=== PATIENT | female | born 1990 | race Caucasian/White ===

== ENCOUNTER 2016-09-16 15:41 | Emergency (ER) | payer OTHER ==
[~2016-09-16] VITALS: Ht 165.1 cm; Wt 115.0 kg
[~2016-09-16 15:41] MED LIST: ADVIL200 MG PO; AMOXICILLIN500 MG OR; AMOXIL500 MG OR; BACTRIM DS1 TAB OR; BACTRIM DS1 TAB PO; CONCEPT OB PO; DOXYCYCL HYC100 MG OR; FERR SULFATE325 MG PO; FISH OIL1000 MG PO; FLAGYL500 MG OR; FLEXERIL PO; IBUPROFEN600 MG PO; INTEGRA F OR; INTEGRA F PO; IRON CHEWS PO; KEFLEX500 MG OR; KEFLEX500 MG PO; LORTAB 5 OR; LORTAB 7.57.5 MG PO; LORTAB5 PO; MOTRIN IB200 MG OR; MOTRIN800 MG/TAB PO; NO HOME MEDS; NO MEDS; NORCO1 TA1 PO; PARAGARD IU; PERCOCET 5/325M1 TAB OR; PHENERGAN SUPP RE; PRENATA3 OR; PRENATAL1 TA1 PO; REGLAN10 MG PO; TYLENOL500 MG OR; ULTRAM50 M1 PO; ULTRAM50 MG PO
[2016-09-16] MEDS ORDERED: AMOX/K CLAV875 M1 PO (16:59)
[2016-09-16] MEDS ORDERED: LORTAB 10-325 M1 TAB PO (16:59)
[2016-09-16 17:00] VITALS: BP 126/83
== END 2016-09-16 17:00 | disposition home or self-care (01) | DRG 781 ==
LOC: ED 15:41
DX: O26.891 Other specified pregnancy related conditions, first trimester (principal); H92.11 Otorrhea, right ear; H66.91 Otitis media, unspecified, right ear; Z3A.08 8 weeks gestation of pregnancy; H92.01 Otalgia, right ear

== ENCOUNTER 2016-11-12 05:23 | Emergency (ER) | payer OTHER ==
[~2016-11-12] VITALS: Ht 165.1 cm; Wt 106.0 kg
[~2016-11-12 05:23] MED LIST changes: +AMOX/K CLAV875 M1 PO; +LORTAB 10-325 M1 TAB PO
[2016-11-12] MEDS ORDERED: PRENATA7 PO (05:33)
[2016-11-12 06:30] LABS: HEMATOCRIT 33.7 % (37.0-47.0); IMMATURE GRANULOCYTES 0.5 % (0.0-1.0); MEAN CELL VOLUME 83.8 fL CALC (80.0-100.0); MEAN CORPUSCULAR HGB 27.4 pG CALC (26.0-32.0); MEAN CORPUSCULAR HGB CONC 32.6 g/L CALC (32.0-36.0); NEUT# 6.22 thou/uL (2.00-7.15); RED BLOOD COUNT 4.02 mill/uL (4.20-5.60); RED CELL DISTRI WIDTH 14.6 % (11.5-15.5)
[2016-11-12 06:31] LABS: URINE BLOOD DIPSTICK LARGE (NEGATIVE); URINE CLARITY TURBID; URINE COLOR YELLOW; URINE GLUCOSE - DIPSTICK NEGATIVE (NEGATIVE); URINE KETONE NEGATIVE (NEGATIVE); URINE LEUK ESTERASE NEGATIVE (NEGATIVE); URINE NITRITE - DIPSTICK NEGATIVE (Negative); URINE PH 5.5 (4.5-8.0); URINE PROTEIN - DIPSTICK 30 mg/dL (NEG-TRACE); URINE SPECIFIC GRAVITY >=1.030; URINE UROBILINOGEN - DIPSTICK 0.2 E.U./dL (0.2)
[2016-11-12 06:32] LABS: URINE BILIRUBIN - DIPSTICK SMALL (NEGATIVE)
[2016-11-12 06:33] LABS: URINE BACTERIA FEW hpf; URINE MUCUS FEW hpf (NONE-FEW); URINE RBC 25-50 RBC/hpf (0-5); URINE SQUAMOUS EPITHELIAL CELL MODERATE EPI/hpf (0-FEW)
[2016-11-12 06:37] LABS: ALBUMIN 3.6 g/dL (3.2-5.0); ALKALINE PHOSPHATASE 79 u/l (38-126); ANION GAP 13 (6-22 (CALC)); BILIRUBIN, TOTAL 0.3 mg/dL (0.0-1.4); BUN 5 mg/dL (7-17); BUN/CREATININE RATIO 11 (12-20 (CALC)); CALCIUM 9.2 mg/dL (8.4-10.2); CARBON DIOXIDE 19 mmol/l (22-30); CHLORIDE 107 mmol/l (95-108); CREATININE 0.5 mg/dL (0.5-1.0); GFR > 60 ML/MIN (>=60 (CALC)); GFR FOR AFR.AMER. > 60 ML/MIN (>=60 (CALC)); GLUCOSE 106 mg/dL (65-105); POTASSIUM 4.1 mmol/l (3.5-5.1); SGOT/AST 12 u/l (14-36); SGPT/ALT 24 u/l (9-52); SODIUM 136 mmol/l (137-146); TOTAL PROTEIN 6.8 g/dL (6.3-8.2)
[2016-11-12 07:18] LABS: BETA-HCG, QUANT(RESULT NUMBER) 52839 mIU/mL
[2016-11-12] MEDS ORDERED: CORTISPORIN11 OT (09:49)
[2016-11-12 09:52] VITALS: BP 125/79
== END 2016-11-12 10:00 | disposition home or self-care (01) | DRG 782 ==
LOC: ED 05:23
PROVIDERS: Emergency Medicine
DX: O46.92 Antepartum hemorrhage, unspecified, second trimester (principal); H60.90 Unspecified otitis externa, unspecified ear; Z3A.00 Weeks of gestation of pregnancy not specified

== ENCOUNTER 2016-11-13 13:49 | Emergency (ER) | payer OTHER ==
[~2016-11-13] VITALS: Ht 165.1 cm; Wt 90.9 kg
[~2016-11-13 13:49] MED LIST changes: +CORTISPORIN11 OT; +PRENATA7 PO
[2016-11-13 14:28] LABS: HEMATOCRIT 32.9 % (37.0-47.0); HEMOGLOBIN 10.8 g/dl (12.0-16.0); IMMATURE GRANULOCYTES 0.3 % (0.0-1.0); MEAN CELL VOLUME 83.3 fL CALC (80.0-100.0); MEAN CORPUSCULAR HGB 27.3 pG CALC (26.0-32.0); MEAN CORPUSCULAR HGB CONC 32.8 g/L CALC (32.0-36.0); NEUT# 6.88 thou/uL (2.00-7.15); RED BLOOD COUNT 3.95 mill/uL (4.20-5.60); RED CELL DISTRI WIDTH 14.6 % (11.5-15.5)
[2016-11-13 14:39] LABS: ANION GAP 14 (6-22 (CALC)); BUN 6 mg/dL (7-17); BUN/CREATININE RATIO 12 (12-20 (CALC)); CALCIUM 9.5 mg/dL (8.4-10.2); CARBON DIOXIDE 21 mmol/l (22-30); CHLORIDE 106 mmol/l (95-108); CREATININE 0.5 mg/dL (0.5-1.0); GFR > 60 ML/MIN (>=60 (CALC)); GFR FOR AFR.AMER. > 60 ML/MIN (>=60 (CALC)); GLUCOSE 114 mg/dL (65-105); POTASSIUM 3.9 mmol/l (3.5-5.1); SODIUM 138 mmol/l (137-146)
[2016-11-13 15:21] LABS: BETA-HCG, QUANT(RESULT NUMBER) 51673 mIU/mL
[2016-11-13 16:05] VITALS: BP 119/66
== END 2016-11-13 16:15 | disposition home or self-care (01) | DRG 782 ==
LOC: ED 13:49
PROVIDERS: Family Medicine
DX: O46.92 Antepartum hemorrhage, unspecified, second trimester (principal); Z3A.16 16 weeks gestation of pregnancy

== ENCOUNTER 2017-03-15 17:23 | Inpatient (IN) | payer OTHER ==
[~2017-03-15] VITALS: Ht 165.1 cm; Wt 117.0 kg
[2017-03-15] VITALS (11 sets, daily range): BP systolic 92–128; BP diastolic 50–61
--- NOTE | 2017-03-15 17:30 | NUR ---
WITH EDC OF 05/01/16, PREVIOUS X 3, CAME TO TRIAGE C/O PAIN TO VAGINAL, GROIN, LOWER ABDOMINAL AREA THAT COMES AND GOES, AND STARTED YESTERDAY AT 1700. IN ADDITION, PT STATES SHE WIPED GREENISH MUCOUS THIS MORNING AFTER URINATING. HEIGHT/WEIGHT/UA/DOA OBTAINED. ASSISTED TO BED, EFM STARTED.
--- NOTE | 2017-03-15 17:45 | NUR ---
DISCUSSED PLAN OF CARE WITH PT, INCLUDING COLLECTING FFN, ROM PLUS AND FERN. PT VERBALIZED UNDERSTANDING.
--- NOTE | 2017-03-15 18:00 | NUR ---
RETURNED TO PT'S ROOM TO COLLECT TESTING AND PT HAD REMOVED EFM AND WAS SITTING ON THE TOILET, MOANING, STATES SHE FEELS PRESSURE LIKE SHE HAS TO HAVE A BM. ASSISTED PT BACK TO BED, CALLED FOR ASSISTANCE. FFN DONE FIRST. THEN SPECULUM EXAM DONE BY Vianca NORWOOD RN AND CERVIX WAS VISUALIZED CLOSED WITH THICK WHITE MUCOUS ON POSTERIOR FORNIX. FERN AND ROM PLUS COLLECTED. @1808 EFM RESTARTED. @1810 PT IS SWEATING, STATES PAIN HAS GOTTEN WORSE SINCE ARRIVING TO UNIT. @181 DR. WALKER NOTIFIED OF PT BEING HERE AND COMPLAINTS. ASKED TO COME TO BEDSIDE FOR EVALUATION. ORDERS RECEIVED.
[2017-03-15 18:14] LABS: URINE BILIRUBIN - DIPSTICK NEGATIVE (NEGATIVE); URINE BLOOD DIPSTICK NEGATIVE (NEGATIVE); URINE COLOR YELLOW; URINE GLUCOSE - DIPSTICK NEGATIVE (NEGATIVE); URINE KETONE NEGATIVE (NEGATIVE); URINE LEUK ESTERASE NEGATIVE (NEGATIVE); URINE NITRITE - DIPSTICK NEGATIVE (Negative); URINE PROTEIN - DIPSTICK NEGATIVE (NEG-TRACE); URINE UROBILINOGEN - DIPSTICK 0.2 E.U./dL (0.2)
[2017-03-15 18:15] LABS: URINE CLARITY CLEAR
[2017-03-15 18:17] LABS: COCAINE NEGATIVE (NEGATIVE); METHADONE NEGATIVE (NEGATIVE); TETRAHYDROCANNABIONOL NEGATIVE (NEGATIVE)
[2017-03-15 18:18] LABS: BARBITURATES NEGATIVE (NEGATIVE); OXCYCODONE NEGATIVE (NEGATIVE); TRICYLIC ANTIDEPRESSANTS NEGATIVE (NEGATIVE)
--- NOTE | 2017-03-15 18:32 | NUR ---
CAMPAIGN MANAGEMENT SENIOR MANAGER AT BEDSIDE.
[2017-03-15] MEDS ORDERED: FERR SULFATE325 MG PO (18:33)
--- NOTE | 2017-03-15 18:42 | NUR ---
DR. WALKER AT BEDSIDE, LITHARGE MILL OPERATOR REPORTED CERVIX IS CLOSED, 4 CM [address]. WALKER DISCUSSED PLAN OF CARE WITH PT, PT VERBALIZED UNDERSTANDING.
--- NOTE | 2017-03-15 18:45 | NUR ---
REPORT GIVEN TO Marcus HUNTER RN.
--- NOTE | 2017-03-15 19:00 | NUR ---
Bedside report with this RN and Sanam Tirado RN; reviewed plan of care to start IV, draw labs, medicate with IV medication and monitor overnight. Pt asked if she would be home by 0700, RN stated not likely. Pt stated she has three children at home and her has to go to work, pt was told she should make other arrangements and if he felt it is needed, pt may be transferred to [place].
[2017-03-15 19:35] LABS: HEMATOCRIT 27.5 % (37.0-47.0); HEMOGLOBIN 8.8 g/dl (12.0-16.0); MEAN CELL VOLUME 86.5 fL CALC (80.0-100.0); MEAN CORPUSCULAR HGB 27.7 pG CALC (26.0-32.0); NEUT# 7.09 thou/uL (2.00-7.15); RED BLOOD COUNT 3.18 mill/uL (4.20-5.60); RED CELL DISTRI WIDTH 15.8 % (11.5-15.5)
[2017-03-15 19:55] LABS: ALBUMIN 3.1 g/dL (3.2-5.0); ALKALINE PHOSPHATASE 115 u/l (38-126); ANION GAP 13 (6-22 (CALC)); BILIRUBIN, TOTAL 0.2 mg/dL (0.0-1.4); BUN 8 mg/dL (7-17); BUN/CREATININE RATIO 15 (12-20 (CALC)); CALCIUM 8.8 mg/dL (8.4-10.2); CARBON DIOXIDE 21 mmol/l (22-30); CHLORIDE 108 mmol/l (95-108); CREATININE 0.5 mg/dL (0.5-1.0); GFR > 60 ML/MIN (>=60 (CALC)); GFR FOR AFR.AMER. > 60 ML/MIN (>=60 (CALC)); GLUCOSE 137 mg/dL (65-105); SGOT/AST 13 u/l (14-36); SGPT/ALT 19 u/l (9-52); SODIUM 138 mmol/l (137-146)
--- NOTE | 2017-03-15 20:10 | NUR ---
RN provided mouth swabs per pt request, and answering questions re: if baby was born now, what would happen. RN relayed baby likely to be in the NICU for a few days or longer r/t immature lungs, but every day older the baby gets the less likely that is, RN also relayed ffN was negative indicating that labor is not emminemt at this time, coupled with long cervical length is a good indication baby is likely to stay inside longer. Pt states that gives her some relief.
--- NOTE | 2017-03-15 21:23 | NUR ---
Pt's significant other and child visiting in room.
--- NOTE | 2017-03-15 22:00 | NUR ---
After pt up to bathroom, RN at bedside for 30 min trying to capture FHR. Baby with extreme movements, pt wincing with movements, states "it makes my stomach hurt worse". RN placed O2 sensor to capture MHR vs FHR
--- NOTE | 2017-03-15 22:17 | NUR ---
Pt medicated with Nubain dose #2, states "maybe it will help me sleep" states pain/pressure 09/19
--- NOTE | 2017-03-15 22:34 | NUR ---
Still having trouble tracing FHR, RN applied ROSEMARY turner with explanation to patient.
--- NOTE | 2017-03-15 23:23 | NUR ---
RN call to Dr. Jerome re: medication has not helped pt's pain and she states that she still has shooting pains in her lower abdomen. ROSEMARY turner was placed on patient and it is picking up contractions q 3-7 min, and that coincides with when pt states she is feeling the pains. New orders for magnesium sulfate received.
--- NOTE | 2017-03-15 23:43 | NUR ---
Betamethasone 12mg given IM right ventral gluteal with explanation that should baby deliver early, this will help with baby's breathing. Pt voices understanding.
--- NOTE | 2017-03-15 23:44 | NUR ---
Magnesium Sulfate 4gm bolus initiated by Marcus Joyner RNC, checked by Yahir Rankin RN with explanation of side effects to patient.
--- NOTE | 2017-03-15 23:44 | NUR ---
Dr. Jerome present at patient's bedside, checked monitor strip and discussion with patient re: pt states still feeling contractions, although they feel less.
[2017-03-16] VITALS (13 sets, daily range): BP systolic 97–130; BP diastolic 51–70
--- NOTE | 2017-03-16 01:02 | NUR ---
Dr. Jerome at pt's bedside, asked if pains were any better. Pt states "yes, they are still there, but less". Pt attempting to go to sleep. new order for ANCEF 2gm q 6 h received.
--- NOTE | 2017-03-16 01:20 | NUR ---
Dr. Jerome call with Dr. Alvarenga re: transfer to [facility]. Dr. Alvarenga accepted transfer.
--- NOTE | 2017-03-16 02:05 | NUR ---
Marcus Joyner, RNC call with Niles Infante RN re: Nurse to nurse report re: transfer from [facility] to [facility]. This RN reviewed all meds given, IV, Hx MRSA; swab sent today, history of blood transfusion with other delivery, history of placenta previa and bleeding this but resolved, placenta anterior. ffN negative today, cervical length 4cm today, SVE 2353 closed and long, campuzano draining well. Maternal history relayed, reflexes 1+, no clonus, lungs clear, relayed average vital signs as well as FHR and contraction pattern.
--- NOTE | 2017-03-16 04:22 | NUR ---
Transfer team here from [facility], Niles Infante RN told campuzano out, shown monitor strip, updated vital signs. RN assessed patient, changed to their IV tubing and pump, pt up to bathroom again for 250ml urine. Team departed at 0449.
--- NOTE | 2017-03-16 05:10 | NUR ---
0336 pt c/o extreme bladder pain, states "it feels like I have to use the bathroom so bad". No bladder distention, catheter draining well. RN offered to reinsert a new catheter. Pt states "I have had problems with my bladder since I was a kid". RN straight catherized patient with red rubber catheter, obtained 125ml urine. Pt states "feels better, but feels like my urinary tract is burning". 0400 pt states if she cannot get up to the bathroom, she is going to "sign herself out". RN obtained standby assistance from Jessy Huang RN, and pt ambulated to bathroom with steady gait, voided 250ml urine. 0410 RN call to [facility] to update accepting RN that campuzano was out, Charge Nurse stated that accepting nurse was on the transfer team and would be at [facility] shortly.
== END 2017-03-16 04:49 | disposition short-term general hospital (02) | DRG 778 ==
LOC: OBOP 17:23 → EDSTATUS 17:25 → OBOP 17:49 → OB 17:50 → OBOP 18:40 → OB 18:45
PROVIDERS: ADMIT Obstetrics & Gynecology; ATTEND Obstetrics & Gynecology
PROC: 0T9B70Z Drainage of Bladder with Drainage Device, Via Natural or Artificial Opening (ICD-10-PCS; principal; 2017-03-15)
DX: O60.03 Preterm labor without delivery, third trimester (principal); E66.9 Obesity, unspecified; O99.213 Obesity complicating pregnancy, third trimester; O34.219 Maternal care for unspecified type scar from previous cesarean delivery; N85.8 Other specified noninflammatory disorders of uterus; O99.333 Smoking (tobacco) complicating pregnancy, third trimester; F17.210 Nicotine dependence, cigarettes, uncomplicated; Z3A.33 33 weeks gestation of pregnancy

== ENCOUNTER 2017-04-23 09:48 | Inpatient (IN) | payer OTHER ==
[~2017-04-23] VITALS: Ht 165.1 cm; Wt 111.6 kg
[2017-04-26] VITALS (13 sets, daily range): BP systolic 91–139; BP diastolic 40–69
[2017-04-26 01:39] LABS: HEMATOCRIT 29.1 % (37.0-47.0); HEMOGLOBIN 9.4 g/dl (12.0-16.0); IMMATURE GRANULOCYTES 0.8 % (0.0-1.0); MEAN CELL VOLUME 87.4 fL CALC (80.0-100.0); MEAN CORPUSCULAR HGB 28.2 pG CALC (26.0-32.0); MEAN CORPUSCULAR HGB CONC 32.3 g/L CALC (32.0-36.0); NEUT# 6.95 thou/uL (2.00-7.15); RED BLOOD COUNT 3.33 mill/uL (4.20-5.60); RED CELL DISTRI WIDTH 16.1 % (11.5-15.5)
[2017-04-26 01:42] LABS: URINE BILIRUBIN - DIPSTICK NEGATIVE (NEGATIVE); URINE BLOOD DIPSTICK NEGATIVE (NEGATIVE); URINE COLOR YELLOW; URINE GLUCOSE - DIPSTICK NEGATIVE (NEGATIVE); URINE KETONE NEGATIVE (NEGATIVE); URINE LEUK ESTERASE NEGATIVE (NEGATIVE); URINE NITRITE - DIPSTICK NEGATIVE (Negative); URINE PROTEIN - DIPSTICK NEGATIVE (NEG-TRACE); URINE SPECIFIC GRAVITY 1.015; URINE UROBILINOGEN - DIPSTICK 0.2 E.U./dL (0.2)
[2017-04-26 01:48] LABS: BARBITURATES NEGATIVE (NEGATIVE); COCAINE NEGATIVE (NEGATIVE); METHADONE NEGATIVE (NEGATIVE); OXCYCODONE NEGATIVE (NEGATIVE); TETRAHYDROCANNABIONOL NEGATIVE (NEGATIVE); TRICYLIC ANTIDEPRESSANTS NEGATIVE (NEGATIVE)
[2017-04-26 01:57] LABS: URINE CLARITY CLEAR
[2017-04-26 02:00] LABS: ALBUMIN 3.2 g/dL (3.2-5.0); ALKALINE PHOSPHATASE 147 u/l (38-126); ANION GAP 14 (6-22 (CALC)); BILIRUBIN, TOTAL 0.2 mg/dL (0.0-1.4); BUN 8 mg/dL (7-17); BUN/CREATININE RATIO 15 (12-20 (CALC)); CALCIUM 9.4 mg/dL (8.4-10.2); CARBON DIOXIDE 21 mmol/l (22-30); CHLORIDE 109 mmol/l (95-108); CREATININE 0.5 mg/dL (0.5-1.0); GFR > 60 ML/MIN (>=60 (CALC)); GFR FOR AFR.AMER. > 60 ML/MIN (>=60 (CALC)); GLUCOSE 96 mg/dL (65-105); POTASSIUM 3.9 mmol/l (3.5-5.1); SGOT/AST 16 u/l (14-36); SGPT/ALT 23 u/l (9-52); SODIUM 141 mmol/l (137-146); TOTAL PROTEIN 6.1 g/dL (6.3-8.2)
[2017-04-27 04:40] VITALS: BP 114/52
[2017-04-27 05:30] LABS: HEMATOCRIT 28.2 % (37.0-47.0); IMMATURE GRANULOCYTES 0.6 % (0.0-1.0); MEAN CELL VOLUME 89.2 fL CALC (80.0-100.0); MEAN CORPUSCULAR HGB 28.5 pG CALC (26.0-32.0); MEAN CORPUSCULAR HGB CONC 31.9 g/L CALC (32.0-36.0); NEUT# 7.71 thou/uL (2.00-7.15); RED BLOOD COUNT 3.16 mill/uL (4.20-5.60); RED CELL DISTRI WIDTH 16.2 % (11.5-15.5)
[2017-04-27 07:45] VITALS: BP 107/42
[2017-04-27 16:25] VITALS: BP 123/66
[2017-04-27 20:15] VITALS: BP 120/57
[2017-04-28 00:20] VITALS: BP 110/55
[2017-04-28 09:20] VITALS: BP 122/65
[2017-04-28] MEDS ORDERED: LORTAB 7.57.5 MG PO (10:56)
[2017-04-28] MEDS ORDERED: IBUPROFEN600 MG PO (10:57)
== END 2017-04-28 12:05 | disposition home or self-care (01) | DRG 765 ==
LOC: OB 04-26 00:41
PROVIDERS: ADMIT Obstetrics & Gynecology; ATTEND Obstetrics & Gynecology
PROC: 10D00Z1 Extraction of Products of Conception, Low, Open Approach (ICD-10-PCS; principal; 2017-04-26)
PROC: 0UB70ZZ Excision of Bilateral Fallopian Tubes, Open Approach (ICD-10-PCS; 2017-04-26)
DX: O34.211 Maternal care for low transverse scar from previous cesarean delivery (principal); Z68.41 Body mass index [BMI] 40.0-44.9, adult; N85.8 Other specified noninflammatory disorders of uterus; O99.214 Obesity complicating childbirth; E66.9 Obesity, unspecified; O99.334 Smoking (tobacco) complicating childbirth; F17.210 Nicotine dependence, cigarettes, uncomplicated; Z3A.39 39 weeks gestation of pregnancy; Z37.0 Single live birth

== ENCOUNTER 2018-12-18 18:42 | Emergency (ER) | payer SELFPAY ==
[~2018-12-18] VITALS: Ht 165.1 cm; Wt 93.0 kg
[2018-12-18] MEDS ORDERED: CORTISPORIN OTI10 M2 AS (19:31)
[2018-12-18 19:54] VITALS: BP 119/70
== END 2018-12-18 19:47 | disposition home or self-care (01) | DRG 156 ==
LOC: ED 18:42
DX: H60.92 Unspecified otitis externa, left ear (principal)

== ENCOUNTER 2020-10-08 11:41 | Emergency (ER) | payer OTHER ==
[~2020-10-08] VITALS: Ht 165.1 cm; Wt 95.5 kg
[~2020-10-08 11:41] MED LIST changes: +CORTISPORIN OTI10 M2 AS
[2020-10-08] MEDS ORDERED: FLOXIN OTIC0.3 % AU (12:36)
[2020-10-08] MEDS ORDERED: PERCOCET 10/31 COMBO PO (12:36)
[2020-10-08] MEDS ORDERED: AMOX/K CLAV875 M1 PO (12:36)
[2020-10-08 12:58] VITALS: BP 126/71
== END 2020-10-08 12:58 | disposition home or self-care (01) ==
LOC: ED 11:41
DX: H66.93 Otitis media, unspecified, bilateral (principal)

== ENCOUNTER 2021-12-15 12:40 | Emergency (ER) | payer OTHER ==
[~2021-12-15] VITALS: Ht 165.1 cm; Wt 100.0 kg
[~2021-12-15 12:40] MED LIST changes: +FLOXIN OTIC0.3 % AU; +PERCOCET 10/31 COMBO PO
[2021-12-15 13:36] VITALS: BP 143/87
[2021-12-15 14:08] LABS: URINE BILIRUBIN - DIPSTICK NEGATIVE (NEGATIVE); URINE BLOOD DIPSTICK NEGATIVE (NEGATIVE); URINE COLOR YELLOW; URINE GLUCOSE - DIPSTICK NEGATIVE (NEGATIVE); URINE KETONE NEGATIVE (NEGATIVE); URINE LEUK ESTERASE NEGATIVE (NEGATIVE); URINE PH 6.5 (4.5-8.0); URINE PROTEIN - DIPSTICK NEGATIVE (NEG-TRACE); URINE SPECIFIC GRAVITY 1.015; URINE UROBILINOGEN - DIPSTICK 0.2 E.U./dL (0.2)
[2021-12-15 14:12] LABS: URINE NITRITE - DIPSTICK NEGATIVE (Negative)
[2021-12-15] MEDS ORDERED: CYCLOBENZAPRINE10 MG PO (15:51)
[2021-12-15] MEDS ORDERED: NAPROXEN500 MG PO (15:51)
[2021-12-15 16:12] VITALS: BP 143/87
== END 2021-12-15 16:18 | disposition home or self-care (01) ==
LOC: ED 12:40
PROVIDERS: Nurse Practitioner
DX: M54.50 Low back pain, unspecified (principal)